=== PATIENT | male | born 1980 | race African-American/Black ===

== ENCOUNTER 2018-03-27 05:32 | Inpatient (IN) ==
[2018-03-27] MEDS ORDERED: *HR* OxyCODONE/APAP 7.5/325 TABLET PO ONE (05:50)
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
[2018-03-27 07:19] LABS: Troponin I < 0.03 ng/mL (< 0.04)
[2018-03-27] MEDS ORDERED: *HR* Heparin 5,000 UNIT/ML VIAL IVP ONE (07:27)
--- NOTE | 2018-03-27 07:31 | Emergency Department Note ---
Disposition Clinical Impression: Lower extremity edema, Deep vein thrombosis of lower extremity Disposition: Admitted As Inpatient Condition: Good Time of Disposition: 07:31 General Adult HPI - General Chief complaint: ED Extremity Problem,Nontraumatic Stated complaint: possible DVT Time Seen by Provider: 03/27/18 05:41 Source: patient Limitations: no limitations - History of Present Illness Pain Scale: 10 - Related Data Home Medications Medication Instructions Recorded Confirmed Apixaban [Eliquis] 5 mg PO BID 03/27/18 03/27/18 Allergies Allergy/AdvReac Type Severity Reaction Status Date / Time No Known Allergies Allergy Verified 03/27/18 07:35 Constitutional: Denies: fever, chills ENT ED: Denies: congestion Cardiovascular: Denies: chest pain, palpitations, syncope Respiratory: Denies: cough, dyspnea, wheezes Gastrointestinal: Denies: abdominal pain, nausea, vomiting, diarrhea Genitourinary: Denies: urgency, dysuria, frequency Musculoskeletal: Reports: other (Left lower extremity pain. Pain to popliteal region on left lower extremity. Swelling to left lower extremity.). Denies: back pain, neck pain Integumentary: Denies: rash, abrasion Neurological: Denies: headache, weakness Past Medical History - Past Medical History Medical history: Reports: DVT Psychiatric history: Reports: no psych history - Social History Smoking Status: Never smoker Alcohol use: Reports: occasionally Drug use: Reports: none Physical Exam - General Limitations: no limitations General appearance: alert, in no apparent distress Course - Reevaluation(s) Reevaluation #1: Patient was signed out from the evening team, Dr. Zeng and Kary. Patient was signed out pending DVT ultrasound LLE. We reviewed their history of present illness and physical exam and agree. Ultrasound called to relay that the patient has a clot extending from the distal iliac all the way down to the popliteal and does have some distal calf thromboses as well. Patient previously had a thrombectomy at [facility] about 6 months ago, but states that he does not want to go back there because it is too far from home and he would like to be managed here if possible. The patient hospitalist for admission. Patient's denying any chest pain or shortness breath. His vital signs are stable. Left lower extremity is swollen and tender. We will start on heparin. Patient is already on ELiquis Time: 07:29 Reevaluation #2: Patient accepted by the hospitalist service. However, they did request vascular surgery consult. I spoke with vascular surgery on-call, and they agreed with starting heparin and that they would evaluate him today after he was admitted. Time: 08:38 Vital Signs Temperature 97.7 F 03/27/18 05:34 Pulse Rate 108 03/27/18 05:34 Respiratory Rate 18 03/27/18 05:34 Blood Pressure 131/89 03/27/18 05:34 O2 Sat by Pulse Oximetry 98 03/27/18 05:34 Temperature 97.7 F 03/27/18 05:34 Pulse Rate 108 03/27/18 05:34 Respiratory Rate 18 03/27/18 05:34 Blood Pressure 121/88 03/27/18 08:26 O2 Sat by Pulse Oximetry 98 03/27/18 05:34 Oxygen Delivery Oxygen Delivery Room Air Medical Decision Making - Lab Data Result diagrams: 03/27/18 06:48 03/27/18 06:48 Lab Results 03/27/18 03/27/18 03/27/18 Range/Units 06:48 06:48 06:48 WBC 11.0 (4.3-11.1) K/mcL RBC 4.29 (4.19-5.50) M/mcL Hgb 13.7 (12.9-16.9) g/dL Hct 39.6 (37.5-50.1) % MCV 92.3 (83.0-100.0) fL MCH 31.9 (28.0-33.3) pg MCHC 34.6 (31.6-35.5) g/dL RDW 13.1 (11.5-14.5) % Plt Count 270 (140-400) K/mcL MPV 9.9 (9.4-12.4) fL Immature Gran % 0.5 (0-4) % Seg Neutrophils % 69.3 % Lymphocytes % 15.2 % Monocytes % 10.5 % Eosinophils % 4.1 % Basophils % 0.4 % Neutrophils # 7.6 (1.6-8.9) K/mcL Lymphocytes # 1.7 (0.6-4.6) K/mcL Monocytes # 1.2 (0.0-1.3) K/mcL Eosinophils # 0.5 (0.0-0.6) K/mcL Basophils # 0.0 (0.0-0.2) K/mcL PT 14.9 H (9.4-12.1) Seconds INR 1.4 APTT 33.7 (26.0-36.0) Seconds Sodium 136 (136-145) mEq/L Potassium 4.4 (3.5-5.1) mEq/L Chloride 101 (98-107) mEq/L Carbon Dioxide 28 (23-29) mEq/L BUN 17 (6-20) mg/dL Creatinine 0.94 (0.70-1.30) mg/dL Est GFR ( Amer) > 60 (> 60) Est GFR (Non-Af Amer) > 60 (> 60) BUN/Creatinine Ratio 18 (6-26) Glucose 95 (70-105) mg/dL Calculated Osmolality 283 (280-300) Calcium 9.3 (8.6-10.3) mg/dL Troponin I < 0.03 (< 0.04) ng/mL
[2018-03-27] MEDS ORDERED: *HR* Morphine 2 MG/ML SYRINGE IVP ONE ×2 (07:32→22:58)
[2018-03-27] MEDS ORDERED: 0.9 % Sodium Chloride 1,000 ML IVC ONE (07:32)
--- NOTE | 2018-03-27 07:45 | Emergency Department Note ---
Disposition Clinical Impression: Lower extremity edema, Deep vein thrombosis of lower extremity Disposition: Admitted As Inpatient Condition: Good Referrals: NONE,PCP [Primary Care Provider] - Forms: ED Satisfaction Letter General Adult HPI - General Chief complaint: ED Extremity Problem,Nontraumatic Stated complaint: possible DVT Time Seen by Provider: 03/27/18 05:41 Source: patient Limitations: no limitations Nursing Notes Reviewed: Yes Vital Signs Reviewed: Yes - History of Present Illness Pain Scale: 10 - Related Data Home Medications Medication Instructions Recorded Confirmed Apixaban [Eliquis] 5 mg PO BID 03/27/18 03/27/18 Allergies Allergy/AdvReac Type Severity Reaction Status Date / Time No Known Allergies Allergy Verified 03/27/18 07:35 Constitutional: Denies: fever, chills ENT ED: Denies: congestion Cardiovascular: Denies: chest pain, palpitations, syncope Respiratory: Denies: cough, dyspnea, wheezes Gastrointestinal: Denies: abdominal pain, nausea, vomiting, diarrhea Genitourinary: Denies: urgency, dysuria, frequency Musculoskeletal: Reports: other (Left lower extremity pain. Pain to popliteal region on left lower extremity. Swelling to left lower extremity.). Denies: back pain, neck pain Integumentary: Denies: rash, abrasion Neurological: Denies: headache, weakness Past Medical History - Past Medical History Medical history: Reports: DVT Psychiatric history: Reports: no psych history - Social History Smoking Status: Never smoker Alcohol use: Reports: occasionally Drug use: Reports: none Physical Exam - General Limitations: no limitations General appearance: alert, in no apparent distress Course Vital Signs Temperature 97.7 F 03/27/18 05:34 Pulse Rate 108 03/27/18 05:34 Respiratory Rate 18 03/27/18 05:34 Blood Pressure 131/89 03/27/18 05:34 O2 Sat by Pulse Oximetry 98 03/27/18 05:34 Temperature 97.7 F 03/27/18 05:34 Pulse Rate 108 03/27/18 05:34 Respiratory Rate 18 03/27/18 05:34 Blood Pressure 131/89 03/27/18 05:34 O2 Sat by Pulse Oximetry 98 03/27/18 05:34 Oxygen Delivery Oxygen Delivery Room Air Medical Decision Making - MDM Narrative Medical decision making narrative: Patient was a sign out from the evening ER physician Dr. Preston. Patient has a history of DVT and has lower extremities swelling that has been going on for at least the past couple days maybe longer but he thinks is getting worse. Denies shortness of breath or chest pain. He is on Kasia was currently. Had a thrombectomy in the past. This was apparently performed at [facility]. Patient 's left leg is swollen and DVT study is positive for DVT. We talked about staying here versus back to [facility] he like to stay here. We will start him on heparin and speak with hospitalist for admission. - Lab Data Lab Results 03/27/18 Range/Units 06:48 Troponin I < 0.03 (< 0.04) ng/mL Attestation Statement - Attestation Attestation: I examined this patient and my medical decision-making was reviewed with the Resident Physician. I agree with the documented findings, disposition and treatment plan as described except to the extent set forth below. Patient seen and evaluated by Dr. East and myself, I agree with his evaluation management plan supervise care the patient's stay.
[2018-03-27 07:47] LABS: Basophils % 0.4 %; Eosinophils # 0.5 K/mcL (0.0-0.6); Eosinophils % 4.1 %; Hematocrit 39.6 % (37.5-50.1); Hemoglobin 13.7 g/dL (12.9-16.9); Immature Granulocytes % 0.5 % (0-4); Lymphocytes # 1.7 K/mcL (0.6-4.6); Lymphocytes % 15.2 %; Mean Corpuscular HGB Conc 34.6 g/dL (31.6-35.5); Mean Corpuscular Hemoglobin 31.9 pg (28.0-33.3); Mean Corpuscular Volume 92.3 fL (83.0-100.0); Mean Platelet Volume 9.9 fL (9.4-12.4); Monocytes # 1.2 K/mcL (0.0-1.3); Monocytes % 10.5 %; Neutrophils # 7.6 K/mcL (1.6-8.9); Platelet Count 270 K/mcL (140-400); Red Blood Count 4.29 M/mcL (4.19-5.50); Red Cell Distribution Width 13.1 % (11.5-14.5); Segmented Neutrophils % 69.3 %
[2018-03-27 07:51] LABS: INR 1.4; Prothrombin Time 14.9 Seconds (9.4-12.1)
[2018-03-27] MEDS ORDERED: *HR* Heparin 5,000 UNIT/ML VIAL IVP PRN (07:51)
[2018-03-27 07:53] LABS: Activated Partial Thrombo Time 33.7 Seconds (26.0-36.0)
[2018-03-27] MEDS: Heparin 25,000 UNIT/500 ML D5W 25,000 UNIT/500 ML BAG IVC SCH (08:06)
[2018-03-27 08:24] LABS: BUN/Creatinine Ratio 18 (6-26); Blood Urea Nitrogen 17 mg/dL (6-20); Calcium 9.3 mg/dL (8.6-10.3); Carbon Dioxide 28 mEq/L (23-29); Chloride 101 mEq/L (98-107); Glucose 95 mg/dL (70-105); Osmolality,Calculated 283 (280-300); Potassium 4.4 mEq/L (3.5-5.1); Sodium 136 mEq/L (136-145); eGFR For African Americans > 60 (> 60); eGFR For Non-African Americans > 60 (> 60)
[2018-03-27] MEDS ORDERED: Naloxone 0.4 MG/ML INJ IVP PRN (09:27)
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
[2018-03-27 09:46] LABS: Bilirubin,Urine Negative (Negative); Blood,Urine Small (Negative); Clarity,Urine Clear (Clear); Color,Urine Yellow (Yellow); Glucose,Urine (UA) Normal (Normal); Ketones,Urine Negative (Negative); Leukocyte Esterase,Urine Negative (Negative); Nitrite,Urine Negative (Negative); Protein,Urine Negative (Neg-Trace); Specific Gravity,Urine 1.023 (1.010-1.025); Urobilinogen,Urine Normal (Normal)
[2018-03-27 09:49] LABS: Bacteria,Urine None Seen per hpf (None-Few); Hyaline Casts,Urine None Seen per lpf (None-Few); Squamous Epithelial Cell,Urine None Seen per lpf (None-Few); WBC,Urine 0-3 per hpf (0-3)
[2018-03-27] MEDS: *HR* OxyCODONE/APAP 7.5/325 TABLET PO PRN ×2 (12:33→16:49)
--- NOTE | 2018-03-27 12:33 | Electrocardiograph Report ---
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
[2018-03-27] MEDS: *HR* Heparin 5,000 UNIT/ML VIAL IVP PRN (20:20)
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
[2018-03-28] MEDS: Heparin 25,000 UNIT/500 ML D5W 25,000 UNIT/500 ML BAG IVC SCH (01:19)
[2018-03-28 02:09] LABS: Basophils # 0.1 K/mcL (0.0-0.2); Basophils % 0.5 %; Eosinophils # 0.6 K/mcL (0.0-0.6); Hematocrit 37.2 % (37.5-50.1); Hemoglobin 12.9 g/dL (12.9-16.9); Immature Granulocytes % 0.8 % (0-4); Lymphocytes # 2.2 K/mcL (0.6-4.6); Lymphocytes % 21.8 %; Mean Corpuscular HGB Conc 34.7 g/dL (31.6-35.5); Mean Corpuscular Hemoglobin 31.5 pg (28.0-33.3); Mean Platelet Volume 9.6 fL (9.4-12.4); Neutrophils # 6.3 K/mcL (1.6-8.9); Platelet Count 251 K/mcL (140-400); Red Blood Count 4.09 M/mcL (4.19-5.50); Red Cell Distribution Width 12.9 % (11.5-14.5); Segmented Neutrophils % 60.9 %
[2018-03-28 02:32] LABS: Alanine Aminotransferase 14 Units/L (7-52); Albumin 3.7 g/dL (3.5-5.7); Albumin/Globulin Ratio 1.4 (1.1-2.2); Alkaline Phosphatase 74 Units/L (34-104); Aspartate Amino Transferase 15 Units/L (13-39); BUN/Creatinine Ratio 18 (6-26); Bilirubin,Total 0.3 mg/dL (0.3-1.0); Blood Urea Nitrogen 14 mg/dL (6-20); Calcium 8.8 mg/dL (8.6-10.3); Carbon Dioxide 26 mEq/L (23-29); Chloride 102 mEq/L (98-107); Chol/HDL Ratio 2.6 (0-4.9); Cholesterol 148 mg/dL (< 200); Globulin 2.6 g/dL (2.4-3.5); Glucose 102 mg/dL (70-105); HDL Cholesterol 57 mg/dL (40-59); LDL Cholesterol,Calculated 58 mg/dL (0-99); Osmolality,Calculated 279 (280-300); Phosphorous 3.2 mg/dL (2.7-4.5); Potassium 4.2 mEq/L (3.5-5.1); Sodium 134 mEq/L (136-145); Total Protein 6.3 g/dL (6.4-8.9); Triglycerides 166 mg/dL (< 150); eGFR For African Americans > 60 (> 60); eGFR For Non-African Americans > 60 (> 60)
[2018-03-28] MEDS: *HR* OxyCODONE/APAP 7.5/325 TABLET PO PRN (07:27)
[2018-03-28] MEDS: *HR* Heparin 5,000 UNIT/ML VIAL IVP PRN (09:30)
[2018-03-28] MEDS ORDERED: Lidocaine -MPF 2% 2 ML VIAL ONE (10:09)
[2018-03-28] MEDS ORDERED: *HR* Rocuronium Bromide 50 MG/5 ML VIAL ONE (10:09)
[2018-03-28] MEDS ORDERED: *HR* FentaNYL (PF) 100 MCG/2 ML VIAL ONE ×2 (10:09→12:49)
[2018-03-28] MEDS ORDERED: *HR* Midazolam HCl 2 MG/2 ML VIAL ONE (10:09)
[2018-03-28] MEDS ORDERED: Dexamethasone 4 MG/ML VIAL ONE (10:09)
[2018-03-28] MEDS ORDERED: Ondansetron 4 MG/2 ML VIAL ONE (10:09)
[2018-03-28] MEDS ORDERED: *HR* Propofol 200 MG/20 ML VIAL IVP ONE (10:09)
[2018-03-28] MEDS ORDERED: Lidocaine -MPF 4% 5 ML AMPUL ONE (10:14)
--- NOTE | 2018-03-28 10:33 | Anesthesia Evaluation PreOp ---
Date of Encounter: 03/28/18 Time of Encounter: 10:31 - Past History Planned Operation: Left Lower Extremity Venous Thrombectomy Cardiac History: Other (H/O DVT) Pulmonary History: Former smoker (quit 1 year ago, smoked for 21 years) SECURITY COORDINATOR History: Denies Any Significant HX Other Medical History: Denies Any Significant HX Anesthesia History: No Prior Anesthetic Complications, Past Anesthesia Alcohol Use: occasionally Drug use: none Medications and Allergies Apixaban [Eliquis] 5 mg PO BID 03/27/18 [History] 3 Allergy/AdvReac Type Severity Reaction Status Date / Time No Known Allergies Allergy Verified 03/27/18 07:35 - Meds/Allergy Pre-op Review Medications Reviewed: Yes Allergies Reviewed: Yes Beta Blockers on Current Med List: No Anesthesia Results - Labs 03/28/18 01:55 03/28/18 01:55 Laboratory Tests 03/27/18 03/28/18 06:48 07:54 PT 14.9 H INR 1.4 APTT 46.2 H - Imaging EKG: report reviewed (03/27/2018 SINUS TACHYCARDIA VOLTAGE CRITERIA FOR LVH) Anesthesia Exam Vital Signs/O2 Sat/Glucose, Most Recent Temp Pulse Resp BP Pulse Ox 98.7 F 80 18 116/69 95 03/28/18 07:05 03/28/18 07:05 03/28/18 07:05 03/28/18 07:05 03/28/18 07:05 Blood Glucose* 109 Height: 5'11''/1.8m Weight: 224 lbs/102 kg NPO (# of Hours): 8 Pain Scale: 8 Pain Scale Used: Numeric (1 - 10) - HEENT Pupil (Motor): EOMI Mallampati: II Teeth: Normal Oral Opening: Greater than 3 - SECURITY COORDINATOR LOC: Oriented SECURITY COORDINATOR Motor: Normal RUE, Normal LUE, Normal RLE, Normal Face, Deficit LLE SECURITY COORDINATOR Sensory: Normal: RUE, LUE, RLE, Face, Deficit: LLE - Cardiac Rhythm: Regular Murmur: None - Pulmonary Breath Sounds: bilateral Clear Respiratory Effort: Symmetrical Anesthesia Assess/Plan ASA Score: 2 Modified [place] Scale for Level of Consciousness: Cooperative, oriented, and tranquil Anesthetic Plan: General Monitoring Plan: Standard Monitors Recovery Plan: PACU
--- NOTE | 2018-03-28 10:52 | Vascular/Endovas Progress Note ---
Date of Encounter: 03/28/18 Time of Encounter: 07:55 - Assessment and plan (1) Deep vein thrombosis of lower extremity Current Visit: Yes Status: Acute The patient reports persistent symptoms of pain and tenderness. He has significant edema that has not improved with intravenous heparin and leg elevation. Will proceed with thrombectomy today. The risks, benefits and alternatives were discussed and all questions were answered. He expressed understanding and wishes to proceed. Qualifiers: Affected thrombotic vein of extremity: other lower extremity vein Chronicity: acute Laterality: left Qualified Code(s): I82.492 - Acute embolism and thrombosis of other specified deep vein of left lower extremity - Subjective Interval history: The patient reports no improvement in his symptoms overnight. Vital Signs, Last 4 Hours Temp Pulse Resp BP Pulse Ox 03/28/18 07:05 98.7 F 80 18 116/69 95 - Physical Examination General: Present: Conversant HEENT: Present: Pupils equal Cardiac: Present: Reg Rate and Rhythm Lungs: Present: Normal Breath Sounds Neuro: Present: Alert and responsive, No focal deficits noted Vascular: Present: Normal capillary refill, Edema (2+ left lower extremity edema ). Absent: Cyanosis Abdomen: Present: Soft Results 03/28/18 01:55 03/28/18 01:55 Lab Results, Last 24 hours 03/27/18 03/27/18 03/27/18 12:20 14:17 19:28 WBC Hgb Hct Plt Count APTT 66.8 H D Sodium Potassium Chloride Carbon Dioxide BUN Creatinine Glucose Calcium Magnesium Total Bilirubin AST ALT Alkaline Phosphatase Troponin I < 0.03 < 0.03 03/27/18 03/28/18 03/28/18 19:28 01:55 01:55 WBC 10.3 Hgb 12.9 Hct 37.2 L Plt Count 251 APTT 49.6 H Sodium Potassium Chloride Carbon Dioxide BUN Creatinine Glucose Calcium Magnesium Total Bilirubin AST ALT Alkaline Phosphatase Troponin I < 0.03 03/28/18 03/28/18 03/28/18 01:55 01:55 07:54 WBC Hgb Hct Plt Count APTT 66.5 H 46.2 H Sodium 134 L Potassium 4.2 Chloride 102 Carbon Dioxide 26 BUN 14 Creatinine 0.79 Glucose 102 Calcium 8.8 Magnesium 2.0 Total Bilirubin 0.3 AST 15 ALT 14 Alkaline Phosphatase 74 Troponin I Consult Discharge Plan - Plan Referrals: Alfie Hardin DO [Partnered Physician] - 05/21/18 2:00 pm NONE,PCP [Primary Care Provider] -
[2018-03-28] MEDS ORDERED: Heparin 1,000 UNITS/500 mL 1,000 ML ONE (10:54)
[2018-03-28] MEDS ORDERED: Vancomycin 1,000 MG VIAL ONE (10:56)
[2018-03-28] MEDS ORDERED: Water for inj. (sterile) 10 ML IV ONE (10:56)
[2018-03-28] MEDS ORDERED: ALTEPLASE IVPB ONE (11:30)
[2018-03-28] MEDS ORDERED: Alteplase (Cathflo) 10 MG in 0.9 % Sodium Chloride 100 ML IVPB ONE (11:45)
[2018-03-28] MEDS ORDERED: Isovue-300 50 ML VIAL IVP ONE (12:04)
[2018-03-28] MEDS ORDERED: Heparin 1,000 UNITS/500 mL 500 ML ONE (13:01)
[2018-03-28] MEDS ORDERED: Neostigmine Methylsulfate 3 MG/3 ML SYRINGE ONE (13:13)
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
[2018-03-28] MEDS ORDERED: *HR* Promethazine 25 MG/ML VIAL IVP PRN (13:45)
[2018-03-28] MEDS ORDERED: *HR* OxyCODONE Immed Rel 5 MG TABLET PO PRN (13:45)
[2018-03-28] MEDS ORDERED: *HR* Morphine 2 MG/ML SYRINGE IVP PRN (13:45)
--- NOTE | 2018-03-28 14:07 | Anesthesia Evaluation Post Op ---
Date of Encounter: 03/28/18 Time of Encounter: 14:06 - Vital Signs Vital Signs: Last Vital Signs Temp 97.6 F 03/28/18 13:59 Pulse 62 03/28/18 13:59 Resp 20 03/28/18 13:59 BP 136/91 03/28/18 13:59 Pulse Ox 99 03/28/18 13:59 - Lungs Lungs: Clear Ascult./Percussion - Airway Airway: Non-obstructed - Cardiovascular Regular Rate - Mental Status Mental Status: Alert & Oriented, Answers Appropriately - Pain Pain Scale: 2 - Nausea Vomiting Nausea Vomiting: Not Present - Hydration Hydration: Ice chips - Discharge PostOp Status: Transfer Patient to floor
[2018-03-28] MEDS ORDERED: *HR* OxyCODONE/APAP 7.5/325 TABLET PO PRN (14:44)
[2018-03-28] MEDS ORDERED: Naloxone 0.4 MG/ML INJ IVP PRN (14:44)
[2018-03-28] MEDS ORDERED: *HR* FentaNYL (PF) 100 MCG/2 ML VIAL IVP ONE (14:53)
[2018-03-28] MEDS: *HR* Rivaroxaban 10 MG TABLET PO SCH ×2 (15:06→20:28)
[2018-03-28] MEDS: *HR* OxyCODONE Immed Rel 5 MG TABLET PO PRN ×2 (15:06→19:45)
--- NOTE | 2018-03-28 16:42 | Internal Med Progress Note ---
Date of Encounter: 03/28/18 Time of Encounter: 16:37 - Assessment and plan (1) Deep vein thrombosis of lower extremity Current Visit: Yes Status: Acute Assessment and plan: hx recurrent lower extremity deep vein thrombosis. On eliquis and has IVC filter. 03/27/2018 BLEVD with acute deep venous thrombosis is present in the left distal iliac through peroneal veins and cute superficial venous thrombosis is present in the left lesser saphenous vein.S/p left leg thrombectomy on 03/28/[address] Bourgeois. Evaluated by oncology who recommended switching anticoagulation to Xarelto. Cont hep gtt for now, pain control. Vascular Surgery following. Cont pain control Qualifiers: Affected thrombotic vein of extremity: other lower extremity vein Chronicity: acute Laterality: left Qualified Code(s): I82.492 - Acute embolism and thrombosis of other specified deep vein of left lower extremity (2) DVT prophylaxis Current Visit: Yes Status: Acute Assessment and plan: Heparin drip Medical decision making: This patient has a moderate to severe risk of worsening in spite of being on appropriate medication due to the underlying complex comorbid conditions. - Time Spent With Patient Total time spent is greater than 50% in coordination of care (as documented) at patient's floor/unit and/or counseling patient: - Subjective Interval history: Seen and examined at bedside. Patient is new to me, information obtained from chart review and patient report. He just returned from surgical procedure. Complains of 10 out of 10 left leg pain. Also reports numbness/tingling to left leg. Able to move toes slightly. - Constitutional Vitals: Temp Pulse Resp BP Pulse Ox 97.6 F 62 20 136/91 99 03/28/18 13:59 03/28/18 13:59 03/28/18 13:59 03/28/18 13:59 03/28/18 13:59 General appearance: Present: mild distress, A&O X 3, answers questions appropriately - Head Head exam: Present: atraumatic, normocephalic - Eye Eye exam: Present: PERRL, conjuntiva pink, sclera anicteric Pupils: Present: PERRL - Neck Neck exam general surgery: Present: supple, trachea midline. Absent: lymphadenopathy - Respiratory Respiratory exam: Present: CTAB. Absent: accessory muscle use, rales, rhonchi, wheezes - Cardiovascular Cardiovascular exam: Present: RRR, +S1, +S2. Absent: diastolic murmur, gallop, rubs, systolic murmur - GI/Abdominal GI/Abdominal exam: Present: normal bowel sounds, soft, no peritoneal signs. Absent: distended, tenderness - Extremities Exam Extremities exam: Present: pedal edema, warm, radial pulses palpable and symmetrical. Absent: calf tenderness, cyanotic Additional comments: left leg with Karl wrap from her foot up to thigh and non-pitting edema - Neurological Exam Neurological exam: Present: CN II-XII intact, oriented X3, no focal deficits. Absent: pronater drift, facial droop, speech deficit - Skin Skin exam: Present: dry, intact Internal Medicine: Result - Labs CBC & Chem 7: 03/28/18 01:55 03/28/18 01:55 Labs: Short CBC 03/28/18 Range/Units 01:55 WBC 10.3 (4.3-11.1) K/mcL Hgb 12.9 (12.9-16.9) g/dL Hct 37.2 L (37.5-50.1) % Plt Count 251 (140-400) K/mcL Neutrophils # 6.3 (1.6-8.9) K/mcL BMP 03/28/18 01:55 Sodium 134 L Potassium 4.2 Chloride 102 Carbon Dioxide 26 BUN 14 Creatinine 0.79 Glucose 102 Calcium 8.8 Cardiac Enzymes 03/27/18 03/28/18 Range/Units 19:28 01:55 Troponin I < 0.03 < 0.03 (< 0.04) ng/mL Liver Function 03/28/18 Range/Units 01:55 Total Bilirubin 0.3 (0.3-1.0) mg/dL AST 15 (13-39) Units/L ALT 14 (7-52) Units/L Alkaline Phosphatase 74 (34-104) Units/L Albumin 3.7 (3.5-5.7) g/dL - ABG Interpretation ABG results: PT/INR, D-dimer PT 14.9 Seconds (9.4-12.1) H 03/27/18 06:48 - Impressions Impressions Femur X-Ray 03/28/18 00:00 IMPRESSION: Intraprocedural fluoroscopic spot images as above. See separate procedure report for more information. D/ / 03/28/2018 13:33:13 Gaudencio Bernstein MD / keyur Interpreting Provider: Gaudencio Bernstein MD Fluoroscopy 03/28/18 00:00 IMPRESSION: Intraprocedural fluoroscopic spot images as above. See separate procedure report for more information. D/ / 03/28/2018 13:33:13 Gaudencio Bernstein MD / keyur Interpreting Provider: Gaudencio Bernstein MD Consult Discharge Plan - Plan Referrals: Sanju Porras MD [Partnered Physician] - 05/08/18 2:40 pm Alfie Hardin DO [Partnered Physician] - 05/21/18 2:00 pm Ashli Guevara MD [Resident] - 04/02/18 2:00 pm (This appointment is at the [facility] hospital across from the coffee shop)
[2018-03-29] MEDS: *HR* OxyCODONE Immed Rel 5 MG TABLET PO PRN ×2 (00:02→08:39)
[2018-03-29 04:17] LABS: Basophils % 0.1 %; Hematocrit 36.9 % (37.5-50.1); Hemoglobin 12.4 g/dL (12.9-16.9); Immature Granulocytes % 0.5 % (0-4); Lymphocytes # 0.7 K/mcL (0.6-4.6); Lymphocytes % 5.1 %; Mean Corpuscular HGB Conc 33.6 g/dL (31.6-35.5); Mean Corpuscular Hemoglobin 30.6 pg (28.0-33.3); Mean Corpuscular Volume 91.1 fL (83.0-100.0); Mean Platelet Volume 9.7 fL (9.4-12.4); Monocytes # 0.8 K/mcL (0.0-1.3); Monocytes % 6.6 %; Neutrophils # 11.3 K/mcL (1.6-8.9); Platelet Count 253 K/mcL (140-400); Red Blood Count 4.05 M/mcL (4.19-5.50); Red Cell Distribution Width 12.6 % (11.5-14.5); Segmented Neutrophils % 87.7 %
[2018-03-29 04:35] LABS: BUN/Creatinine Ratio 17 (6-26); Blood Urea Nitrogen 14 mg/dL (6-20); Carbon Dioxide 27 mEq/L (23-29); Chloride 101 mEq/L (98-107); Glucose 158 mg/dL (70-105); Osmolality,Calculated 280 (280-300); Potassium 4.7 mEq/L (3.5-5.1); Sodium 133 mEq/L (136-145); eGFR For African Americans > 60 (> 60); eGFR For Non-African Americans > 60 (> 60)
[2018-03-29 07:33] VITALS: BP 124/77
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
--- NOTE | 2018-03-29 08:46 | Discharge Summary ---
- NOTES TO OUTPATIENT PROVIDER Notes to Outpatient Provider: Rec CBC within 1 week Date of Encounter: 03/29/18 Time of Encounter: 08:43 - Discharge Diagnosis (1) Deep vein thrombosis of lower extremity Priority: Primary Status: Acute Assessment and Plan: hx chronic lower extremity deep vein thrombosis. On eliquis at home and has IVC filter. Presented with left leg pain and swelling. 03/27/2018 BLEVD with acute DVT to left distal iliac through peroneal veins and acute superficial venous thrombosis in the left lesser saphenous vein. S/p left lower extremity mechanical thrombectomy on 03/28/[address] Bourgeois. Evaluated by oncology who recommended switching anticoagulation to Xarelto. Patient will need lifelong anticoagulation therapy, thigh-high compression garment, leg elevation and exercise as tolerated. Follow-up with vascular surgery in one month (patient should not return to work until he has been cleared by vascular surgery). Follow -up with Oncology as well. Cont Xarelto 15mg BID Qualifiers: Affected thrombotic vein of extremity: iliac Chronicity: acute Laterality : left Qualified Code(s): I82.422 - Acute embolism and thrombosis of left iliac vein (2) Acute blood loss as cause of postoperative anemia Priority: Primary Status: Acute Assessment and Plan: Hgb 13.7 on arrival and dropped to 12.4 postoperatively. No active bleeding. Recommend repeat CBC with PCP within one week Hospital course: Please see assessment and plan for Hospital course Discharge discussed with: patient (Seen and examined at bedside. Laying in bed , appears comfortable. Complains of left lower extremity pain which is relieved with when necessary pain medicine. No active bleeding. No chest pain or shortness of breath.) - Time Spent with Patient Total time spent providing and/or coordinating discharge services: - Discharge Medications Prescriptions: OxyCODONE Immed Rel [Roxicodone 5 MG] 5 mg PO Q6HR PRN 7 Days #28 tablet PRN Reason: Pain Rivaroxaban [Xarelto] 15 mg PO BID #60 tablet Home Medications: OxyCODONE Immed Rel [Roxicodone 5 MG] 5 mg PO Q6HR PRN 7 Days #28 tablet [Rx] Rivaroxaban [Xarelto] 15 mg PO BID #60 tablet 03/29/18 [Rx] Allergies/Adverse Reactions: 3 Allergy/AdvReac Type Severity Reaction Status Date / Time No Known Allergies Allergy Verified 03/27/18 07:35 Date of admission: 03/27/18 09:57 Primary care physician: PCP NONE Consults: 03/27/18 11:12 Consult to Oncology Hematology [CONS] Routine Consulting Provider: Bassam Henning Reason for Consult: left lower limb recurrent DVT Call Completed: Yes 03/27/18 17:15 Consult to Insurance Specialist [CONS] Routine Reason for SW Consult: Good evening. Can you please help to check pricing for Xarelto 15 mg PO BID for this patient? Thank you! Discharging clinician: Annabelle Valles Anticipated date of discharge: 03/29/18 - Constitutional Vitals: Temp Pulse Resp BP Pulse Ox 97.8 F 74 19 124/77 93 03/29/18 07:30 03/29/18 07:30 03/29/18 07:30 03/29/18 07:30 03/29/18 07:30 General appearance: Present: A&O X 3, no acute distress, answers questions appropriately - Head Head exam: Present: atraumatic, normocephalic - Eye Eye exam: Present: PERRL, conjuntiva pink, sclera anicteric Pupils: Present: PERRL - Neck Neck exam general surgery: Present: supple, trachea midline. Absent: lymphadenopathy - Respiratory Respiratory exam: Present: CTAB. Absent: accessory muscle use, rales, rhonchi, wheezes - Cardiovascular Cardiovascular exam: Present: RRR, +S1, +S2. Absent: diastolic murmur, gallop, rubs, systolic murmur - GI/Abdominal GI/Abdominal exam: Present: normal bowel sounds, soft, no peritoneal signs. Absent: distended, tenderness - Extremities Exam Extremities exam: Present: pedal edema, warm, radial pulses palpable and symmetrical. Absent: calf tenderness, cyanotic Additional comments: Left lower extremity with Karl wrap from foot to thigh, trace nonpitting edema noted to foot. Skin warm, good cap refill. - Neurological Exam Neurological exam: Present: CN II-XII intact, oriented X3, no focal deficits. Absent: pronater drift, facial droop, speech deficit - Skin Skin exam: Present: dry, intact - Patient Status Disposition: Home, Self-Care Condition: Good Functional capacity at discharge: independent ambulation Overall status at discharge: patient is progressing back to baseline - Discharge Instructions Instructions: Rivaroxaban (By mouth), Oxycodone, Rapid Release (By mouth), Deep Venous Thrombosis (DC) Follow Up With: Sanju Porras MD [Partnered Physician] - 05/08/18 2:40 pm Alfie Hardin DO [Partnered Physician] - 05/21/18 2:00 pm Ashli Guevara MD [Resident] - 04/02/18 2:00 pm (This appointment is at the main hospital across from the coffee shop) - Diet and Activity Activity: increase activity as tolerated Diet: advance to your usual diet - VTE Documentation of Mechanical Device: Intermittent pneumatic compression device
[2018-03-29] MEDS ORDERED: *HR* Rivaroxaban 15 MG TABLET PO SCH (09:00)
== END 2018-03-29 10:42 | disposition home or self-care (01) | DRG 180 ==
LOC: EDBD → 3BNU 05:32 → EMEROO 05:32 → 3BNU 09:02 → 2NNU 03-28 14:49
PROVIDERS: ADMIT Internal Medicine; ATTEND Internal Medicine

== ENCOUNTER 2018-04-27 11:16 | Inpatient (IN) ==
[2018-04-27] MEDS ORDERED: *HR* OxyCODONE/APAP 5/325 TABLET PO ONE ×2 (11:42→13:55)
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
[2018-04-27 11:52] LABS: Basophils % 0.4 %; Eosinophils # 0.4 K/mcL (0.0-0.6); Eosinophils % 4.8 %; Hematocrit 41.8 % (37.5-50.1); Hemoglobin 14.5 g/dL (12.9-16.9); Immature Granulocytes % 0.3 % (0-4); Lymphocytes # 1.7 K/mcL (0.6-4.6); Lymphocytes % 18.3 %; Mean Corpuscular HGB Conc 34.7 g/dL (31.6-35.5); Mean Corpuscular Hemoglobin 31.9 pg (28.0-33.3); Mean Corpuscular Volume 91.9 fL (83.0-100.0); Mean Platelet Volume 9.6 fL (9.4-12.4); Monocytes # 0.8 K/mcL (0.0-1.3); Neutrophils # 6.1 K/mcL (1.6-8.9); Platelet Count 250 K/mcL (140-400); Red Blood Count 4.55 M/mcL (4.19-5.50); Red Cell Distribution Width 13.2 % (11.5-14.5); Segmented Neutrophils % 67.2 %
[2018-04-27 11:58] LABS: INR 1.1; Prothrombin Time 11.7 Seconds (9.4-12.1)
[2018-04-27 12:00] LABS: Activated Partial Thrombo Time 32.3 Seconds (26.0-36.0)
--- NOTE | 2018-04-27 12:08 | Emergency Department Note ---
Disposition Clinical Impression: Acute deep vein thrombosis (DVT) of left lower extremity Qualifiers: Affected thrombotic vein of extremity: unspecified vein of extremity Qualified Code(s): I82.402 - Acute embolism and thrombosis of unspecified deep veins of left lower extremity Disposition: Admitted As Inpatient Condition: Good Forms: ED Satisfaction Letter General Adult HPI - General Chief complaint: ED Extremity Problem,Nontraumatic Stated complaint: LLE DVT Time Seen by Provider: 04/27/18 11:23 Limitations: no limitations - History of Present Illness Pain Scale: 9 Improves with: nothing Worsens with: movement Associated symptoms: Reports: denies other symptoms Treatments Prior to Arrival: none - Related Data Previous Rx's Medication Instructions Recorded Rivaroxaban [Xarelto] 15 mg PO BID #60 tablet 03/29/18 Allergies Allergy/AdvReac Type Severity Reaction Status Date / Time No Known Allergies Allergy Verified 04/27/18 11:56 Constitutional: Denies: fever ENT ED: Denies: throat pain Cardiovascular: Denies: chest pain Respiratory: Denies: cough Gastrointestinal: Denies: abdominal pain Musculoskeletal: Denies: back pain Integumentary: Denies: rash Neurological: Denies: headache Past Medical History - Past Medical History Medical history: Reports: DVT Psychiatric history: Reports: no psych history - Social History Smoking Status: Current some day smoker Alcohol use: Reports: none Drug use: Reports: none Physical Exam - General Limitations: no limitations General appearance: alert, in no apparent distress Course Vital Signs Temperature 98.1 F 04/27/18 11:18 Pulse Rate 105 04/27/18 11:18 Respiratory Rate 20 04/27/18 11:18 Blood Pressure 119/83 04/27/18 11:18 O2 Sat by Pulse Oximetry 96 04/27/18 11:18 Temperature 98.1 F 04/27/18 11:28 Pulse Rate 105 04/27/18 11:28 Respiratory Rate 20 04/27/18 11:28 Blood Pressure 119/83 04/27/18 11:28 O2 Sat by Pulse Oximetry 96 04/27/18 11:28 Oxygen Delivery Oxygen Delivery Room Air Medical Decision Making - Lab Data Result diagrams: 04/27/18 11:42 Lab Results 04/27/18 04/27/18 Range/Units 11:42 11:42 WBC 9.1 (4.3-11.1) K/mcL RBC 4.55 (4.19-5.50) M/mcL Hgb 14.5 (12.9-16.9) g/dL Hct 41.8 (37.5-50.1) % MCV 91.9 (83.0-100.0) fL MCH 31.9 (28.0-33.3) pg MCHC 34.7 (31.6-35.5) g/dL RDW 13.2 (11.5-14.5) % Plt Count 250 (140-400) K/mcL MPV 9.6 (9.4-12.4) fL Immature Gran % 0.3 (0-4) % Seg Neutrophils % 67.2 % Lymphocytes % 18.3 % Monocytes % 9.0 % Eosinophils % 4.8 % Basophils % 0.4 % Neutrophils # 6.1 (1.6-8.9) K/mcL Lymphocytes # 1.7 (0.6-4.6) K/mcL Monocytes # 0.8 (0.0-1.3) K/mcL Eosinophils # 0.4 (0.0-0.6) K/mcL Basophils # 0.0 (0.0-0.2) K/mcL PT 11.7 (9.4-12.1) Seconds INR 1.1 APTT 32.3 (26.0-36.0) Seconds Attestation Statement - Attestation Attestation: I examined this patient and my medical decision-making was reviewed with the Resident Physician. I agree with the documented findings, disposition and treatment plan as described except to the extent set forth below. 38 year old male prsentes to the eD with complaints of LLE DVT confirmedon Sunday and most recently had a blood clot removed fromthe leg by Dr. Porras last week. PAtinet states taht he came in today bcause he was advised for admission due to the extent of the DVT into the iliacs. We will do prelim bloodwork and start heparin and admit to medicine
[2018-04-27] MEDS ORDERED: *HR* Heparin 5,000 UNIT/ML VIAL IVP ONE (12:12)
[2018-04-27] MEDS ORDERED: *HR* Heparin 5,000 UNIT/ML VIAL IVP PRN ×2 (12:12)
[2018-04-27 12:34] LABS: Blood Urea Nitrogen 21 mg/dL (6-20); Calcium 9.9 mg/dL (8.6-10.3); Carbon Dioxide 27 mEq/L (23-29); Chloride 104 mEq/L (98-107); Glucose 84 mg/dL (70-105); Osmolality,Calculated 290 (280-300); Potassium 4.2 mEq/L (3.5-5.1); Sodium 139 mEq/L (136-145)
[2018-04-27 12:56] LABS: BUN/Creatinine Ratio 21 (6-26); eGFR For African Americans > 60 (> 60); eGFR For Non-African Americans > 60 (> 60)
[2018-04-27] MEDS: Heparin 25,000 UNIT/500 ML D5W 25,000 UNIT/500 ML BAG IVC SCH (12:58)
[2018-04-27] MEDS ORDERED: Acetaminophen 325 MG TABLET PO PRN (13:37)
[2018-04-27] MEDS ORDERED: Naloxone 0.4 MG/ML INJ IVP PRN (13:38)
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
[2018-04-27] MEDS: Nicotine 14 MG PATCH.TD24 TD SCH (15:32)
[2018-04-27] MEDS: *HR* OxyCODONE Immed Rel 5 MG TABLET PO PRN ×2 (15:54→22:09)
[2018-04-27] MEDS: Ibuprofen 400 MG TABLET PO SCH (17:52)
[2018-04-27] MEDS: *HR* HYDROcodone/Acet 5/325 mg TABLET PO PRN (19:41)
[2018-04-28] MEDS: Ibuprofen 400 MG TABLET PO SCH ×4 (00:25→18:28)
[2018-04-28] MEDS: *HR* OxyCODONE Immed Rel 5 MG TABLET PO PRN ×3 (04:53→20:39)
[2018-04-28] MEDS: Nicotine 14 MG PATCH.TD24 TD SCH (08:28)
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
[2018-04-28] MEDS: Heparin 25,000 UNIT/500 ML D5W 25,000 UNIT/500 ML BAG IVC SCH (10:59)
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
[2018-04-29] MEDS: *HR* OxyCODONE Immed Rel 5 MG TABLET PO PRN ×2 (05:15→12:27)
[2018-04-29] MEDS: Ibuprofen 400 MG TABLET PO SCH ×3 (05:16→11:28)
[2018-04-29] MEDS: Heparin 25,000 UNIT/500 ML D5W 25,000 UNIT/500 ML BAG IVC SCH (05:16)
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
[2018-04-29] MEDS: *HR* HYDROcodone/Acet 5/325 mg TABLET PO PRN (09:08)
[2018-04-29] MEDS: Nicotine 14 MG PATCH.TD24 TD SCH (09:09)
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
[2018-04-29 15:34] VITALS: BP 128/85
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
== END 2018-04-29 17:07 | disposition home or self-care (01) | DRG 197 ==
LOC: EMEROO 11:16 → 3BNU 11:16
PROVIDERS: ADMIT Family Medicine; ATTEND Family Medicine

== ENCOUNTER 2018-07-09 10:03 | Inpatient (IN) ==
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
[~2018-07-09 10:03] MED LIST: Vancomycin 1,000 MG, Sodium Chloride IRRigation 1,000 ML IR ONE
[2018-07-09] MEDS ORDERED: CeFAZolin Syr 2,000MG/20 ML 2,000 MG/20 ML SYRINGE IVPB ONE (10:29)
[2018-07-09] MEDS ORDERED: Ringers Solution, Lactated 1,000 ML IVC SCH (10:30)
--- NOTE | 2018-07-09 10:32 | History & Physical Report ---
Date of Encounter: 07/09/18 Time of Encounter: 10:30 24 Hour HP Update - Instructions Instructions: If the History and Physical is less than 30 days old and was completed prior to A.M. admission and or procedure and has NOT been updated on calendar day of procedure please complete this update prior to performing procedure. - Update Patient reports changes in Medical Condition: No Changes in examination, assessment, or condition: No Changes in Medication: No Preop tests/diagnostics Reviewed: Yes Surgery Remains Indicated: Yes Consent for Planned Operative Procedure(s) Verified: Yes - Pre-Operative Checklist Preoperative Checklist Indicated: No Prophylactic Antibiotic Ordered: Yes Home Medications Include Beta Val: No Beta Val Taken Today (Day of Surgery): No Beta Val Taken Yesterday (Day Prior to Surgery): No Is VTE Prophylaxis Indicated?: Yes
[2018-07-09] MEDS ORDERED: Heparin 1,000 UNITS/500 mL 1,000 ML ONE (10:39)
[2018-07-09] MEDS ORDERED: *HR* Propofol 200 MG/20 ML VIAL IVP ONE (10:40)
[2018-07-09] MEDS ORDERED: Dexamethasone 4 MG/ML VIAL ONE (10:40)
[2018-07-09] MEDS ORDERED: *HR* Rocuronium Bromide 50 MG/5 ML VIAL ONE ×2 (10:40→12:36)
[2018-07-09] MEDS ORDERED: *HR* FentaNYL (PF) 100 MCG/2 ML VIAL ONE ×2 (10:40→13:14)
[2018-07-09] MEDS ORDERED: *HR* Midazolam HCl 2 MG/2 ML VIAL ONE (10:40)
[2018-07-09] MEDS ORDERED: Lidocaine -MPF 2% 2 ML VIAL ONE (10:40)
[2018-07-09] MEDS ORDERED: Ondansetron 4 MG/2 ML VIAL ONE (10:40)
[2018-07-09] MEDS ORDERED: Albuterol 2.5 MG/3 ML NEBULIZER IH ONE ×2 (10:45→12:02)
[2018-07-09] MEDS ORDERED: *HR* Morphine 10 MG/ML VIAL ONE (11:38)
[2018-07-09] MEDS ORDERED: *HR* HYDROmorphone 2 MG TABLET PO PRN (12:02)
[2018-07-09] MEDS ORDERED: *HR* OxyCODONE Immed Rel 5 MG TABLET PO PRN (12:02)
[2018-07-09] MEDS ORDERED: *HR* Promethazine 25 MG/ML VIAL IVP PRN (12:02)
[2018-07-09] MEDS ORDERED: Dexamethasone 4 MG/ML VIAL IVP ONE (12:02)
[2018-07-09] MEDS ORDERED: MORPHINE SUL Oral CONC 10 MG/0.5 ML ORAL.SYG SL PRN (12:02)
[2018-07-09] MEDS ORDERED: Ondansetron 4 MG/2 ML VIAL IVP ONE (12:02)
[2018-07-09] MEDS ORDERED: *HR* Heparin 5,000 UNIT/ML VIAL ONE (14:20)
[2018-07-09] MEDS ORDERED: Neostigmine Methylsulfate 3 MG/3 ML SYRINGE ONE (15:42)
[2018-07-09] MEDS ORDERED: Acetaminophen IV 1,000 MG/100 ML INFUS..BTL ONE (15:47)
[2018-07-09] MEDS: *HR* HYDROmorphone (PF) 1 MG/ML SYRINGE IVP PRN ×2 (16:45→16:55)
--- NOTE | 2018-07-09 17:16 | Anesthesia Evaluation Post Op ---
Date of Encounter: 07/09/18 Time of Encounter: 17:13 - Vital Signs Vital Signs: Vital Signs/O2 Sat/Glucose, Most Recent Temp Pulse Resp BP Pulse Ox 97.8 F 66 16 129/85 93 07/09/18 17:04 07/09/18 17:04 07/09/18 17:04 07/09/18 17:04 07/09/18 17:04 - Lungs Lungs: Clear Ascult./Percussion - Airway Airway: Non-obstructed - Cardiovascular Regular Rate - Mental Status Mental Status: Alert & Oriented, Answers Appropriately - Pain Pain Scale: 0 Pain Scale used: Numeric (1 - 10) - Nausea Vomiting Nausea Vomiting: Responds to treatment with IV Meds (Nausea controlled with Phenergran) - Hydration Hydration: Ice chips, Hoover catheter Notes: 07/09/18 17:14 AAOx3, VSS with no C/O nausea after Phenergran administration - Discharge PostOp Status: Transfer Patient to floor
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
[2018-07-09] MEDS ORDERED: Naloxone 0.4 MG/ML INJ IVP PRN (17:46)
[2018-07-09] MEDS ORDERED: Acetaminophen 325 MG TABLET PO PRN (17:46)
[2018-07-09] MEDS ORDERED: *HR* Labetalol 20 MG/4 ML SYRINGE IVP PRN (17:46)
[2018-07-09] MEDS ORDERED: Ondansetron 4 MG/2 ML VIAL IVP PRN (17:46)
[2018-07-09] MEDS ORDERED: OXYCODONE Oral CONC 10 MG/0.5 ML ORAL.SYG SL PRN ×2 (17:46)
[2018-07-09] MEDS ORDERED: 0.9 % Sodium Chloride 1,000 ML IVC SCH (17:46)
[2018-07-09] MEDS: *HR* OxyCODONE Immed Rel 5 MG TABLET PO PRN (18:20)
[2018-07-09] MEDS: *HR* HYDROcodone/Acet 5/325 mg TABLET PO PRN (21:01)
[2018-07-10] MEDS: *HR* OxyCODONE Immed Rel 5 MG TABLET PO PRN (00:20)
[2018-07-10 05:27] LABS: Basophils % 0.1 %; Eosinophils % 0.1 %; Hematocrit 39.1 % (37.5-50.1); Hemoglobin 13.5 g/dL (12.9-16.9); Immature Granulocytes % 0.5 % (0-4); Lymphocytes # 0.9 K/mcL (0.6-4.6); Mean Corpuscular HGB Conc 34.5 g/dL (31.6-35.5); Mean Corpuscular Hemoglobin 31.7 pg (28.0-33.3); Mean Corpuscular Volume 91.8 fL (83.0-100.0); Mean Platelet Volume 9.8 fL (9.4-12.4); Monocytes # 0.9 K/mcL (0.0-1.3); Monocytes % 6.9 %; Neutrophils # 11.4 K/mcL (1.6-8.9); Platelet Count 217 K/mcL (140-400); Red Blood Count 4.26 M/mcL (4.19-5.50); Red Cell Distribution Width 13.9 % (11.5-14.5); Segmented Neutrophils % 85.4 %
[2018-07-10] MEDS: *HR* HYDROcodone/Acet 5/325 mg TABLET PO PRN (05:35)
[2018-07-10 05:53] LABS: BUN/Creatinine Ratio 17 (6-26); Blood Urea Nitrogen 14 mg/dL (6-20); Calcium 8.6 mg/dL (8.6-10.3); Carbon Dioxide 24 mEq/L (23-29); Chloride 104 mEq/L (98-107); Glucose 154 mg/dL (70-105); Osmolality,Calculated 282 (280-300); Potassium 4.4 mEq/L (3.5-5.1); Sodium 134 mEq/L (136-145); eGFR For Non-African Americans > 60 (> 60)
[2018-07-10] MEDS ORDERED: *HR* Heparin 5,000 UNIT/ML VIAL SQ SCH ×2 (06:00)
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
[2018-07-10 07:13] VITALS: BP 119/79
== END 2018-07-10 10:39 | disposition home or self-care (01) | DRG 182 ==
LOC: SAMDAY 10:03 → 2NNU 17:18
PROVIDERS: ADMIT Surgery; ATTEND Surgery
PROC: VASFFBG (ICD-10-PCS; 2018-07-09 12:20)

== ENCOUNTER 2018-08-19 13:19 | Inpatient (IN) ==
[2018-08-19] MEDS ORDERED: *HR* FentaNYL (PF) 100 MCG/2 ML VIAL IVP ONE (15:56)
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
[2018-08-19] MEDS ORDERED: Vancomycin 1,750 MG in 0.9 % Sodium Chloride 250 ML IVPB ONE (16:07)
[2018-08-19] MEDS ORDERED: Piperacillin/Tazobactam 3.375 GM in 0.9 % Sodium Chloride Mini Bag 100 ML IVPB ONE (16:07)
[2018-08-19 16:14] LABS: Basophils % 0.2 %; Eosinophils # 0.1 K/mcL (0.0-0.6); Eosinophils % 0.3 %; Hemoglobin 13.6 g/dL (12.9-16.9); Immature Granulocytes % 1.2 % (0-4); Lymphocytes # 0.6 K/mcL (0.6-4.6); Lymphocytes % 2.5 %; Mean Corpuscular HGB Conc 34.9 g/dL (31.6-35.5); Mean Corpuscular Hemoglobin 31.6 pg (28.0-33.3); Mean Corpuscular Volume 90.5 fL (83.0-100.0); Mean Platelet Volume 9.5 fL (9.4-12.4); Monocytes # 1.5 K/mcL (0.0-1.3); Monocytes % 6.2 %; Neutrophils # 21.8 K/mcL (1.6-8.9); Platelet Count 225 K/mcL (140-400); Red Blood Count 4.31 M/mcL (4.19-5.50); Segmented Neutrophils % 89.6 %
[2018-08-19 16:19] LABS: Basophils # 0.1 K/mcL (0.0-0.2)
[2018-08-19 16:30] LABS: BUN/Creatinine Ratio 16 (6-26); Blood Urea Nitrogen 15 mg/dL (6-20); Calcium 9.5 mg/dL (8.6-10.3); Carbon Dioxide 27 mEq/L (23-29); Chloride 100 mEq/L (98-107); Glucose 124 mg/dL (70-105); Osmolality,Calculated 274 (280-300); Potassium 3.7 mEq/L (3.5-5.1); Sodium 131 mEq/L (136-145); eGFR For Non-African Americans > 60 (> 60)
[2018-08-19 16:59] LABS: Platelet Estimate Normal (Normal)
[2018-08-19] MEDS ORDERED: Isovue-370 500 ML INFUS..BTL IV ONE (17:47)
[2018-08-19] MEDS: Isovue-370 500 ML INFUS..BTL IV ONE ×2 (17:47→17:48)
[2018-08-19] MEDS ORDERED: *HR* OxyCODONE/APAP 5/325 TABLET PO ONE (18:03)
[2018-08-19] MEDS ORDERED: Acetaminophen 325 MG TABLET PO PRN (19:27)
[2018-08-19] MEDS ORDERED: Naloxone 0.4 MG/ML INJ IVP PRN (19:27)
[2018-08-19] MEDS ORDERED: *HR* OxyCODONE Immed Rel 5 MG TABLET PO PRN (19:27)
[2018-08-19] MEDS ORDERED: OXYCODONE Oral CONC 10 MG/0.5 ML ORAL.SYG SL PRN ×2 (19:27)
[2018-08-19] MEDS ORDERED: *HR* HYDROcodone/Acet 5/325 mg TABLET PO PRN (19:27)
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
[2018-08-19] MEDS ORDERED: 0.9 % Sodium Chloride 1,000 ML IVC SCH (19:45)
[2018-08-20] MEDS: Piperacillin/Tazobactam 3.375 GM in 0.9 % Sodium Chloride Mini Bag 100 ML IVPB SCH ×4 (02:21→15:43)
[2018-08-20 05:03] LABS: Basophils # 0.1 K/mcL (0.0-0.2); Basophils % 0.2 %; Eosinophils # 0.2 K/mcL (0.0-0.6); Immature Granulocytes % 0.9 % (0-4); Lymphocytes # 0.9 K/mcL (0.6-4.6); Lymphocytes % 4.2 %; Mean Corpuscular HGB Conc 33.7 g/dL (31.6-35.5); Mean Corpuscular Hemoglobin 30.4 pg (28.0-33.3); Mean Corpuscular Volume 90.2 fL (83.0-100.0); Mean Platelet Volume 9.7 fL (9.4-12.4); Monocytes # 1.4 K/mcL (0.0-1.3); Monocytes % 6.2 %; Neutrophils # 19.1 K/mcL (1.6-8.9); Platelet Count 220 K/mcL (140-400); Red Blood Count 3.88 M/mcL (4.19-5.50); Red Cell Distribution Width 14.2 % (11.5-14.5); Segmented Neutrophils % 87.5 %
[2018-08-20 05:04] LABS: Hemoglobin 11.8 g/dL (12.9-16.9)
[2018-08-20 05:24] LABS: BUN/Creatinine Ratio 15 (6-26); Blood Urea Nitrogen 13 mg/dL (6-20); Calcium 8.5 mg/dL (8.6-10.3); Carbon Dioxide 24 mEq/L (23-29); Chloride 101 mEq/L (98-107); Glucose 133 mg/dL (70-105); Osmolality,Calculated 274 (280-300); Potassium 3.8 mEq/L (3.5-5.1); Sodium 131 mEq/L (136-145); eGFR For Non-African Americans > 60 (> 60)
[2018-08-20] MEDS ORDERED: *HR* Heparin 5,000 UNIT/ML VIAL SQ SCH (06:00)
[2018-08-20] MEDS ORDERED: *HR* Propofol 200 MG/20 ML VIAL IVP ONE ×2 (06:46→07:35)
[2018-08-20] MEDS ORDERED: Lidocaine -MPF 2% 2 ML VIAL ONE (06:46)
[2018-08-20] MEDS ORDERED: *HR* Midazolam HCl 2 MG/2 ML VIAL ONE (06:46)
[2018-08-20] MEDS ORDERED: Dexamethasone 4 MG/ML VIAL ONE (06:46)
[2018-08-20] MEDS ORDERED: *HR* FentaNYL (PF) 100 MCG/2 ML VIAL ONE ×2 (06:46→08:08)
[2018-08-20] MEDS ORDERED: *HR* Succinylcholine 200 MG/10 ML VIAL IVP ONE (06:46)
[2018-08-20] MEDS ORDERED: *HR* Rocuronium Bromide 50 MG/5 ML VIAL ONE (06:46)
[2018-08-20] MEDS ORDERED: Ondansetron 4 MG/2 ML VIAL ONE (06:46)
[2018-08-20] MEDS ORDERED: Lidocaine -MPF 4% 5 ML AMPUL ONE (06:46)
[2018-08-20] MEDS ORDERED: Lidocaine/EPI 1:100k 1% 50 ML VIAL ONE (06:48)
[2018-08-20] MEDS ORDERED: Vancomycin 1,000 MG VIAL ONE (06:55)
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
[2018-08-20] MEDS ORDERED: *HR* PHENYLEPHRINE 1,000 MCG/10 ML SYRINGE IVP ONE ×2 (07:46→08:34)
[2018-08-20] MEDS ORDERED: *HR* OxyCODONE Immed Rel 5 MG TABLET PO PRN ×2 (08:05→10:49)
[2018-08-20] MEDS ORDERED: MORPHINE SUL Oral CONC 10 MG/0.5 ML ORAL.SYG SL PRN (08:05)
[2018-08-20] MEDS ORDERED: Ondansetron 4 MG/2 ML VIAL IVP ONE (08:05)
[2018-08-20] MEDS ORDERED: *HR* HYDROmorphone (PF) 1 MG/ML SYRINGE IVP PRN (08:05)
[2018-08-20] MEDS ORDERED: *HR* Promethazine 25 MG/ML VIAL IVP PRN (08:05)
[2018-08-20] MEDS ORDERED: *HR* Morphine 10 MG/ML VIAL ONE (08:20)
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
--- NOTE | 2018-08-20 10:45 | Anesthesia Evaluation Post Op ---
Date of Encounter: 08/20/18 Time of Encounter: 10:44 - Vital Signs Vital Signs: Vital Signs/O2 Sat, Most Current Temp Pulse Resp BP Pulse Ox 99.9 F H 90 18 117/79 94 08/20/18 10:17 08/20/18 10:17 08/20/18 10:17 08/20/18 10:17 08/20/18 10:17 - Lungs Lungs: Clear Ascult./Percussion - Airway Airway: Non-obstructed - Cardiovascular Regular Rate - Mental Status Mental Status: Alert & Oriented, Answers Appropriately - Pain Pain Scale: 0 Pain Scale used: Numeric (1 - 10) - Nausea Vomiting Nausea Vomiting: Not Present - Hydration Hydration: Tolerates oral liquids - Discharge PostOp Status: Transfer Patient to floor
[2018-08-20] MEDS ORDERED: Naloxone 0.4 MG/ML INJ IVP PRN (10:49)
[2018-08-20] MEDS ORDERED: 0.9 % Sodium Chloride 1,000 ML IVC SCH (10:49)
[2018-08-20] MEDS ORDERED: Acetaminophen 325 MG TABLET PO PRN (10:49)
[2018-08-20] MEDS ORDERED: OXYCODONE Oral CONC 10 MG/0.5 ML ORAL.SYG SL PRN (10:49)
[2018-08-20] MEDS: *HR* Heparin 5,000 UNIT/ML VIAL SQ SCH (16:45)
[2018-08-20] MEDS: *HR* HYDROcodone/Acet 5/325 mg TABLET PO PRN (17:49)
[2018-08-20] MEDS: OXYCODONE Oral CONC 10 MG/0.5 ML ORAL.SYG SL PRN (20:04)
[2018-08-21] MEDS: Piperacillin/Tazobactam 3.375 GM in 0.9 % Sodium Chloride Mini Bag 100 ML IVPB SCH ×4 (04:59→23:54)
[2018-08-21] MEDS: OXYCODONE Oral CONC 10 MG/0.5 ML ORAL.SYG SL PRN ×3 (05:02→19:59)
[2018-08-21] MEDS: *HR* Heparin 5,000 UNIT/ML VIAL SQ SCH (05:02)
[2018-08-21 05:34] LABS: Basophils % 0.1 %; Hematocrit 37.8 % (37.5-50.1); Hemoglobin 12.6 g/dL (12.9-16.9); Lymphocytes # 0.7 K/mcL (0.6-4.6); Lymphocytes % 3.4 %; Mean Corpuscular HGB Conc 33.3 g/dL (31.6-35.5); Mean Corpuscular Volume 93.1 fL (83.0-100.0); Mean Platelet Volume 9.9 fL (9.4-12.4); Monocytes # 1.2 K/mcL (0.0-1.3); Monocytes % 5.7 %; Neutrophils # 19.3 K/mcL (1.6-8.9); Platelet Count 245 K/mcL (140-400); Red Blood Count 4.06 M/mcL (4.19-5.50); Red Cell Distribution Width 14.3 % (11.5-14.5); Segmented Neutrophils % 89.8 %
[2018-08-21 05:48] LABS: BUN/Creatinine Ratio 20 (6-26); Blood Urea Nitrogen 17 mg/dL (6-20); Calcium 9.2 mg/dL (8.6-10.3); Carbon Dioxide 24 mEq/L (23-29); Chloride 108 mEq/L (98-107); Glucose 139 mg/dL (70-105); Osmolality,Calculated 292 (280-300); Potassium 4.2 mEq/L (3.5-5.1); Sodium 139 mEq/L (136-145); eGFR For Non-African Americans > 60 (> 60)
[2018-08-21] MEDS: *HR* HYDROcodone/Acet 5/325 mg TABLET PO PRN ×3 (08:16→22:07)
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
[2018-08-21] MEDS: *HR* Rivaroxaban 15 MG TABLET PO SCH (11:29)
[2018-08-22] MEDS: OXYCODONE Oral CONC 10 MG/0.5 ML ORAL.SYG SL PRN ×2 (02:50→08:42)
[2018-08-22] MEDS: *HR* HYDROcodone/Acet 5/325 mg TABLET PO PRN (04:04)
[2018-08-22 04:12] LABS: Basophils # 0.1 K/mcL (0.0-0.2); Basophils % 0.4 %; Eosinophils # 0.3 K/mcL (0.0-0.6); Hematocrit 34.9 % (37.5-50.1); Hemoglobin 11.5 g/dL (12.9-16.9); Immature Granulocytes % 3.6 % (0-4); Lymphocytes # 1.7 K/mcL (0.6-4.6); Mean Corpuscular Hemoglobin 30.3 pg (28.0-33.3); Mean Corpuscular Volume 91.8 fL (83.0-100.0); Mean Platelet Volume 9.9 fL (9.4-12.4); Monocytes # 0.8 K/mcL (0.0-1.3); Monocytes % 5.5 %; Neutrophils # 11.1 K/mcL (1.6-8.9); Platelet Count 252 K/mcL (140-400); Red Cell Distribution Width 14.6 % (11.5-14.5); Segmented Neutrophils % 76.5 %
[2018-08-22 04:32] LABS: BUN/Creatinine Ratio 23 (6-26); Blood Urea Nitrogen 19 mg/dL (6-20); Calcium 8.7 mg/dL (8.6-10.3); Carbon Dioxide 25 mEq/L (23-29); Chloride 107 mEq/L (98-107); Glucose 110 mg/dL (70-105); Osmolality,Calculated 287 (280-300); Potassium 4.1 mEq/L (3.5-5.1); Sodium 137 mEq/L (136-145); eGFR For Non-African Americans > 60 (> 60)
[2018-08-22 07:11] VITALS: BP 121/90
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
[2018-08-22] MEDS: *HR* Rivaroxaban 15 MG TABLET PO SCH (08:32)
[2018-08-22] MEDS ORDERED: Aminoglycoside Consult 1 EACH MC ONE (11:43)
== END 2018-08-22 11:44 | disposition home or self-care (01) | DRG 793 ==
LOC: EMEROOARM 13:19 → 2NNU 13:19 → OBSVTOIN 20:08 → 2NNU 20:50
PROVIDERS: ADMIT Surgery; ATTEND Surgery